=== PATIENT | female | born 1995 | race Caucasian/White ===

== ENCOUNTER 2018-06-04 19:59 | Emergency (ER) | payer MEDICAID ==
[2018-06-04 20:07] VITALS: BP 119/63
[2018-06-04 20:46] LABS: APPEARANCE,URINE CLEAR; BILIRUBIN,URINE NEGATIVE (NEGATIVE); COLOR,URINE COLORLESS; GLUCOSE, URINE NEGATIVE (NEGATIVE); KETONES,URINE NEGATIVE (NEGATIVE); LEUKOCYTE ESTERASE,URINE NEGATIVE (NEGATIVE); NITRITE,URINE NEGATIVE (NEGATIVE); PROTEIN,URINE NEGATIVE (NEGATIVE); URINE SPECIFIC GRAVITY 1.003; UROBILINOGEN,URINE NEGATIVE mg/dL (<2.0)
--- NOTE | 2018-06-04 20:48 | ER Document Report ---
ED General - General Chief Complaint: Abdominal Pain Stated Complaint: STOMACH PAIN, BACK PAIN 17 WEEKS PREG Time Seen by Provider: 06/04/18 20:46 Notes: Chief complaint: Right flank pain History of complain:( obtained from----patient) 23 years old female who is 17 weeks , while falling she broke a fall with the right hand since then having pain over the right flank. Did not hit the ground, no injury to the abdomen. No nausea vomiting, no diarrhea. No vagina related bleeding or discharge. No abdominal cramps. Onset: As above Duration: 2 days ago Severity: Mild to moderate Quality: Sharp Context: As above Exacerbating factor and relieving factors: Change of position REVIEW OF SYSTEMS: CONSTITUTIONAL : Denies fever, chills, or sweats. Denies recent illness. EENT: Denies eye, ear, throat, or mouth pain or symptoms. Denies nasal or sinus congestion or discharge. Denies throat, tongue, or mouth swelling or difficulty swallowing. CARDIOVASCULAR: Denies chest pain. Denies palpitations or racing or irregular heart beat. Denies ankle edema. RESPIRATORY: Denies cough, cold, or chest congestion. Denies shortness of breath, difficulty breathing, or wheezing. GASTROINTESTINAL: Denies distention. Denies nausea, vomiting, or diarrhea. Denies blood in vomitus, stools, or per rectum. Denies black, tarry stools. Denies constipation. GENITOURINARY: Denies difficulty urinating, painful urination, burning, frequency, blood in urine, or discharge. FEMALE GENITOURINARY: Denies vaginal bleeding, heavy or abnormal periods, irregular periods. Denies vaginal discharge or odor. MUSCULOSKELETAL: Denies back or neck pain or stiffness. Denies joint pain or swelling. SKIN: Denies rash, lesions or sores. HEMATOLOGIC : Denies easy bruising or bleeding. LYMPHATIC: Denies swollen, enlarged glands. NEUROLOGICAL: Denies confusion or altered mental status. Denies passing out or loss of consciousness. Denies dizziness or lightheadedness. Denies headache. Denies weakness or paralysis or loss of use of either side. Denies problems with gait or speech. Denies sensory loss, numbness, or tingling. Denies seizures. PSYCHIATRIC: Denies anxiety or stress. Denies depression, suicidal ideation, or homicidal ideation. ALL OTHER SYSTEMS REVIEWED AND NEGATIVE. PHYSICAL EXAMINATION: GENERAL: Well-appearing, well-nourished and in no acute distress. HEAD: Atraumatic, normocephalic. EYES: Pupils equal round and reactive to light, extraocular movements intact, conjunctiva are normal. ENT: Nares patent, oropharynx clear without exudates. Moist mucous membranes. NECK: Normal range of motion, supple without lymphadenopathy LUNGS: Breath sounds clear to auscultation bilaterally and equal. No wheezes rales or rhonchi. HEART: Regular rate and rhythm without murmurs ABDOMEN: Soft, nontender, nondistended abdomen. No guarding, no rebound. No masses appreciated. Right-abdominal muscle tenderness noted. Over the flank Examination of genitals-deferred Musculoskeletal: Normal range of motion, no pitting or edema. No cyanosis. NEUROLOGICAL: Cranial nerves grossly intact. Normal speech, normal gait. Normal sensory, motor exams PSYCH: Normal mood, normal affect. SKIN: Warm, Dry, normal turgor, no rashes or lesions noted. Dictation was performed using [employer] voice recognition software TRAVEL OUTSIDE OF THE [place] IN LAST 30 DAYS: No - HPI Notes: Dictated - Related Data Allergies/Adverse Reactions: oxycodone [From Percocet] Allergy (Verified 06/04/18 20:36) "really itchy and sick feeling" sulfamethoxazole [From Bactrim] Allergy (Verified 06/04/18 20:36) Hives trimethoprim [From Bactrim] Allergy (Verified 06/04/18 20:36) Hives Past Medical History - Social History Smoking Status: Never Smoker Chew tobacco use (# tins/day): No Frequency of alcohol use: None Drug Abuse: None Lives with: Family Family History: Reviewed & Not Pertinent Patient has suicidal ideation: No Patient has homicidal ideation: No - Past Medical History Cardiac Medical History: Denies: Hx Coronary Artery Disease, Hx Heart Attack, Hx Hypertension Pulmonary Medical History: Denies: Hx Asthma, Hx Bronchitis, Hx COPD, Hx Pneumonia Neurological Medical History: Denies: Hx Cerebrovascular Accident, Hx Seizures Renal/ Medical History: Denies: Hx Peritoneal Dialysis Musculoskeletal Medical History: Denies Hx Arthritis Past Surgical History: Reports: Hx Orthopedic Surgery - right knee surgery, Hx Tonsillectomy - Immunizations Hx Diphtheria, Pertussis, Tetanus Vaccination: Yes Review of Systems - Review of Systems Notes: Dictated Physical Exam - Vital signs Vitals: Temp Pulse Resp BP Pulse Ox 98.7 F 89 16 119/63 97 06/04/18 20:06 06/04/18 20:06 06/04/18 20:06 06/04/18 20:06 06/04/18 20:06 - Notes Notes: Dictated Course - Vital Signs Vital signs: Temp Pulse Resp BP Pulse Ox 98.7 F 89 16 119/63 97 06/04/18 20:06 06/04/18 20:06 06/04/18 20:06 06/04/18 20:06 06/04/18 20:06 - Laboratory Laboratory results interpreted by me: 06/04/18 20:30 Urine HCG, Qual POSITIVE H Discharge - Discharge Clinical Impression: Right flank pain Condition: Fair Disposition: HOME, SELF-CARE Instructions: Abdominal Pain ([facility]) Referrals: GERALDO CHIN DO [Primary Care Provider] - Follow up as needed
== END 2018-06-04 20:55 | disposition home or self-care (01) ==
LOC: ER 19:59
DX: O9A.212 Injury, poisoning and certain other consequences of external causes complicating pregnancy, second trimester (principal); O26.892 Other specified pregnancy related conditions, second trimester; R10.9 Unspecified abdominal pain; Z3A.17 17 weeks gestation of pregnancy; W19.XXXA Unspecified fall, initial encounter
CPT/HCPCS: 81001; 81025; 99284

== ENCOUNTER 2018-09-24 17:44 | Emergency (ER) | payer BC, MEDICAID ==
--- NOTE | 2018-09-24 19:53 | ER Document Report ---
HPI - HPI Patient complains to provider of: Flu symptoms Time Seen by Provider: 09/24/18 19:39 Onset: Yesterday Onset/Duration: Gradual Quality of pain: Achy Pain Level: 1 Context: Patient is 33 weeks . Patient complains of body aches that started yesterday and ingestion that started today. Patient does report multiple recent contacts who have been positive for influenza. Patient denies any problems during the thus far. Patient contacted her LITERACY SPECIALIST who advised her to come here to get influenza tested. Patient states that she did get the flu vaccine this year Associated Symptoms: Body/muscle aches, Rhinnorhea. denies: Fever, Nausea Exacerbated by: Denies Relieved by: Denies Similar symptoms previously: No Recently seen / treated by doctor: No - ROS ROS below otherwise negative: Yes Systems Reviewed and Negative: Yes All other systems reviewed and negative - CONSTITUTIONAL Constitutional: DENIES: Fever, Chills - EENT EENT: REPORTS: Nasal Drainage-Clear, Congestion - RESPIRATORY Respiratory: DENIES: Coughing - GASTROINTESTINAL Gastrointestinal: DENIES: Abdominal Pain, Patient vomiting - URINARY Urinary: DENIES: Dysuria, Urgency - REPRODUCTIVE Reproductive: REPORTS: : - MUSCULOSKELETAL Notes: Generalized body aches - DERM Skin Color: Normal Skin Problems: None Past Medical History - General Information source: Patient - Social History Smoking Status: Never Smoker Frequency of alcohol use: None Drug Abuse: None Occupation: [employer] Lives with: Family Family History: Reviewed & Not Pertinent Patient has suicidal ideation: No Patient has homicidal ideation: No Neurological Medical History: Reports: Hx Migraine Renal/ Medical History: Denies: Hx Peritoneal Dialysis Past Surgical History: Reports: Hx Cholecystectomy, Hx Orthopedic Surgery - right knee surgery, Hx Tonsillectomy - Immunizations Hx Diphtheria, Pertussis, Tetanus Vaccination: Yes Vertical Provider Document - CONSTITUTIONAL Agree With Documented VS: Yes Exam Limitations: No Limitations General Appearance: WD/WN, No Apparent Distress - INFECTION CONTROL TRAVEL OUTSIDE OF THE [place] IN LAST 30 DAYS: No - HEENT HEENT: Atraumatic, Normocephalic. negative: Pharyngeal Exudate, Pharyngeal Tenderness, Pharyngeal Erythema, Tympanic Membrane Red, Tympanic Membrane Bulging Notes: Clear rhinorrhea, swollen nasal mucosa - NECK Neck: Normal Inspection, Supple. negative: Lymphadenopathy-Left, Lymphadenopathy-Right - RESPIRATORY Respiratory: Breath Sounds Normal, No Respiratory Distress - CARDIOVASCULAR Cardiovascular: Regular Rate, Regular Rhythm, No Murmur - BACK Back: Normal Inspection - MUSCULOSKELETAL/EXTREMETIES Musculoskeletal/Extremeties: TRISTON ODELL - NEURO Level of Consciousness: Awake, Alert, Appropriate Motor/Sensory: No Motor Deficit - DERM Integumentary: Warm, Dry, No Rash Course - Re-evaluation Re-evalutation: 09/24/18 20:36 Patient with negative influenza test here today. Testing was performed because patient states her OB requested it. Patient advised that a negative test does not mean that she does not have influenza. Patient has had recent exposure to multiple contacts with influenza and patient is currently 33 weeks . We will plan to treat prophylactically with Tamiflu at this time. - Vital Signs Vital signs: Temp Pulse Resp BP Pulse Ox 98.2 F 97 18 111/78 100 09/24/18 18:19 09/24/18 18:19 09/24/18 18:19 09/24/18 18:19 09/24/18 18:19 - Laboratory Laboratory results interpreted by me: 09/24/18 20:37 Labs- Entire Visit 09/24/18 20:00 Influenza A (Rapid) NEGATIVE Influenza B (Rapid) NEGATIVE Discharge - Discharge Clinical Impression: Exposure to influenza Qualifiers: Weeks of gestation: 33 weeks Qualified Code(s): Z3A.33 - 33 weeks gestation of Condition: Stable Disposition: HOME, SELF-CARE Instructions: Acetaminophen, Influenza ([facility]) Additional Instructions: Return immediately for any new or worsening symptoms Followup with your primary care provider, call tomorrow to make a followup appointment Prescriptions: Oseltamivir Phosphate [Tamiflu 75 mg Capsule] 75 mg PO BID #10 capsule Forms: Return to Work Referrals: CLAIRE WOLF MD [Primary Care Provider] - Follow up tomorrow
[2018-09-24 20:33] LABS: A TYPE INFLUENZA AG NEGATIVE (NEGATIVE); B INFLUENZA AG NEGATIVE (NEGATIVE)
[2018-09-24 20:55] VITALS: BP 113/61
== END 2018-09-24 20:59 | disposition home or self-care (01) ==
LOC: ER 17:44
DX: O26.893 Other specified pregnancy related conditions, third trimester (principal); Z20.828 Contact with and (suspected) exposure to other viral communicable diseases; J34.89 Other specified disorders of nose and nasal sinuses; M79.10 Myalgia, unspecified site; Z3A.33 33 weeks gestation of pregnancy
CPT/HCPCS: 87804; 99283

== ENCOUNTER 2018-11-09 09:13 | Outpatient (CLI) | payer BC, MEDICAID ==
--- NOTE | 2018-11-09 12:21 | Non Stress Test Report ---
Non Stress Test Datetime Report Generated by CPN: 11/09/2018 12:21 INDICATION Indication for Study: Decreased Movement MONITORING Monitor Explained: Monitor Explained; Test Explained; Patient Verbalized Understanding Time on Monitor: 11/09/2018 09:31 Time off Monitor: 11/09/2018 10:26 NST Duration: 55 NST INTERVENTIONS NST Interventions: None Physician Notified NST: Dr Eladio BABY A: [id number] BABY A Contraction Frequency : none FHR Baseline : 135 Accelerations : 15X15 Decelerations : None Variability : Moderate 6-25bpm NST Review: Meets Criteria for Reactive NST NST Review and Verified By : Gladys Villa RN NST Results: Reactive NST REPORT Report Trigger: Send Report
[2018-11-09 12:24] LABS: APPEARANCE,URINE SLIGHTLY-CLOUDY; BILIRUBIN,URINE NEGATIVE (NEGATIVE); COLOR,URINE STRAW; GLUCOSE, URINE NEGATIVE (NEGATIVE); KETONES,URINE NEGATIVE (NEGATIVE); LEUKOCYTE ESTERASE,URINE NEGATIVE (NEGATIVE); NITRITE,URINE NEGATIVE (NEGATIVE); PROTEIN,URINE NEGATIVE (NEGATIVE); URINE SPECIFIC GRAVITY 1.004; UROBILINOGEN,URINE NEGATIVE mg/dL (<2.0)
[2018-11-09 12:45] LABS: URINE AMPHETAMINES SCREEN NEGATIVE; URINE BARBITURATES SCREEN NEGATIVE; URINE BENZODIAZEPINES SCREEN NEGATIVE; URINE COCAINE SCREEN NEGATIVE; URINE MARIJUANA (THC) SCREEN NEGATIVE; URINE METHADONE SCREEN NEGATIVE; URINE PHENCYCLIDINE SCREEN NEGATIVE
== END 2018-11-09 10:35 | disposition home or self-care (01) ==
LOC: LC 09:13
PROVIDERS: ATTEND Obstetrics & Gynecology
PROC: 4A1HXCZ Monitoring of Products of Conception, Cardiac Rate, External Approach (ICD-10-PCS; principal; 2018-11-09)
DX: O36.8130 Decreased fetal movements, third trimester, not applicable or unspecified (principal); Z3A.39 39 weeks gestation of pregnancy
CPT/HCPCS: 59025; 80307; 81005

== ENCOUNTER 2018-11-13 08:25 | Inpatient (IN) | payer BC, MEDICAID ==
[2018-11-19] MEDS ORDERED: OXYTOCIN 10 UNIT/ML VIAL ONE (19:33)
[2018-11-19] MEDS ORDERED: LIDOCAINE 1% INJ-PF (10 MG/ML) 30 ML SDV ONE (19:34)
[2018-11-19] MEDS ORDERED: OXYTOCIN/NORMAL SALINE 20 UNIT/1,000 ML RTUINJ ONE (19:34)
[2018-11-19] MEDS ORDERED: DINOPROSTONE 10 MG VAGINAL INSERT.SR ONE (19:34)
[2018-11-19] MEDS ORDERED: MISOPROSTOL 0.2 MG TABLET ONE (19:34)
[2018-11-19] MEDS ORDERED: OXYTOCIN/NORMAL SALINE 20 UNIT/1,000 ML RTUINJ IV PRN ×3 (19:40→20:01)
[2018-11-19] MEDS ORDERED: DINOPROSTONE 10 MG VAGINAL INSERT.SR PV PRN ×2 (19:40→19:59)
[2018-11-19] MEDS ORDERED: RINGERS SOLUTION,LACTATED 1,000 ML IV PRN ×2 (19:40→19:42)
[2018-11-19] MEDS ORDERED: RINGERS SOLUTION,LACTATED 300 ML IV ONE ×2 (19:40→19:59)
--- NOTE | 2018-11-19 19:57 | Admission Physical ---
Datetime Report Generated by CPN: 11/19/2018 19:57 CURRENT ADMISSION Chief Complaint: Scheduled Induction of Labor Indication for Induction: Post Dates Admit Impression : Postterm, Intrauterine Admit Plan: Admit to Unit; Initiate Labor Induction Protocol ALLERGIES Medication Allergies: Yes Medication Allergies: oxycodone/"really itchy a (11/09/2018); sulfamethoxazole/Hives (11/09/2018); trimethoprim/Hives (11/09/2018) OBSTETRICAL HISTORY EDC: 11/13/2018 00:00 : 1 Para: 0 Gestational Diabetes: No Rh Sensitization: No Incompetent Cervix: No SARA: No Infertility: No ART Treatment: No Uterine Anomaly: No IUGR: No Hx Previous C/S: No Macrosomia: No Hx Loss/Stillborn: No PIH: No Hx : No Placenta Previa/Abruption: No Depression/PP Depression: No PTL/PROM: No Post Hemorrhage: No Current Procedures: Ultrasound Obstetrical History Comments: G1 - current, MFM for LT/RT kidney cysts SEE RECORDS Alcohol: No Marijuana : No Cocaine: No Other Illicit Drugs: No Cigarettes: Never Smoker. 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 Surgery: No Heart Disease: No Hosp/Surgery: Yes Autoimmune Disorder: No Anesthetic Complications: No Kidney Disease: No Abnormal Pap Smear: No Neuro/Epilepsy: No Psychiatric Disorders: No Other Medical Diseases: No Hepatitis/Liver Disease: No Significant Family History: No Varicosities/Phlebitis: No Trauma/Violence : No Thyroid Dysfunction: No Medical History Comments: wisdom teeth, tonsillectomy, gallbladder removed, bilateral knee sx INFECTIOUS HISTORY Gonorrhea: No Genital Herpes: No Chlamydia: No Tuberculosis: No Syphilis: No Hepatitis: No HIV/AIDS Exposure: No Rash or Viral Illness: No HPV: No PHYSICAL EXAM General: Normal HEENT: Normal Neurologic: Normal Thyroid: Normal Heart: Normal Lungs: Normal Breast: Deferred Back: Normal Abdomen: Normal Genitourinary Exam: Normal Extremities: Normal DTRs: Normal Pelvic Type: Adequate Vital Signs: Reviewed VAGINAL EXAM Dilatation: 0 Effacement: 0 Station: -2 MEMBRANES Pooling: Negative Membranes: Intact FETUS A EGA: 40.6 Monitoring: External US FHR- Baseline: 120 Variability: Moderate 6-25bpm Decelerations: None FHR Category: Category I Admit Comment: Admit for induction PLANS FOR LABOR AND DELIVERY Labor and Delivery: None Pain Management: Epidural Feeding Preference: Breast Benefit of Breast Feed Discussed: Yes Circumcision: Yes INFORMED CONSENT Signature: with User ID: [email or web address]
[2018-11-19] MEDS ORDERED: MAG HYDROX/AL HYDROX/SIMETH SUSP 30 ML UDCUP PO PRN (20:01)
[2018-11-19] MEDS ORDERED: ACETAMINOPHEN 325 MG TABLET PO PRN (20:01)
[2018-11-19 20:31] LABS: APPEARANCE,URINE CLOUDY; BILIRUBIN,URINE NEGATIVE (NEGATIVE); COLOR,URINE YELLOW; GLUCOSE, URINE NEGATIVE (NEGATIVE); KETONES,URINE NEGATIVE (NEGATIVE); LEUKOCYTE ESTERASE,URINE SMALL (NEGATIVE); NITRITE,URINE NEGATIVE (NEGATIVE); PROTEIN,URINE 30 mg/dL (NEGATIVE); URINE SPECIFIC GRAVITY 1.031; UROBILINOGEN,URINE NEGATIVE mg/dL (<2.0)
[2018-11-19 20:33] LABS: ABSOLUTE EOSINOPHILS # (AUTO) 0.1 10^3/uL (0.0-0.6); ABSOLUTE LYMPHOCYTES (AUTO) 1.7 10^3/uL (0.5-4.7); ABSOLUTE MONOCYTES (AUTO) 1.1 10^3/uL (0.1-1.4); ABSOLUTE NEUT (AUTO) 6.1 10^3/uL (1.7-8.2); BASOPHILS % (AUTO) 0.4 % (0-2); EOSINOPHILS % (AUTO) 0.7 % (0-6); HEMATOCRIT 33.7 % (36.0-47.0); HEMOGLOBIN 11.7 g/dL (12.0-15.5); MEAN CORPUSCULAR HEMOGLOBIN 31.7 pg (27.0-33.4); MEAN CORPUSCULAR HGB CONC 34.6 g/dL (32.0-36.0); MEAN CORPUSCULAR VOLUME 92 fl (80-97); MONOCYTES % (AUTO) 11.8 % (3-13); PLATELET COUNT 192 10^3/uL (150-450); RED BLOOD COUNT 3.67 10^6/uL (3.72-5.28); RED CELL DISTRIBUTION WIDTH 13.7 % (11.5-14.0); SEGMENTED NEUTROPHILS % (AUTO) 68.1 % (42-78); TOTAL CELLS COUNTED % (AUTO) 100 %
[2018-11-19 20:58] LABS: URINE AMPHETAMINES SCREEN NEGATIVE; URINE BARBITURATES SCREEN NEGATIVE; URINE BENZODIAZEPINES SCREEN NEGATIVE; URINE COCAINE SCREEN NEGATIVE; URINE MARIJUANA (THC) SCREEN NEGATIVE; URINE METHADONE SCREEN NEGATIVE; URINE PHENCYCLIDINE SCREEN NEGATIVE
[2018-11-20] MEDS ORDERED: MISOPROSTOL 0.1 MG TABLET PO ONE (10:03)
[2018-11-20] MEDS ORDERED: MISOPROSTOL 0.1 MG TABLET PV ONE (10:04)
[2018-11-20] MEDS ORDERED: MISOPROSTOL 0.1 MG TABLET ONE (10:15)
[2018-11-20] MEDS ORDERED: ACETAMINOPHEN 325 MG TABLET ONE (12:00)
[2018-11-20] MEDS ORDERED: LOPERAMIDE HCL 2 MG CAPSULE ONE ×2 (14:11→14:16)
[2018-11-20] MEDS ORDERED: LOPERAMIDE HCL 2 MG CAPSULE PO ONE (14:13)
[2018-11-20] MEDS ORDERED: OXYTOCIN/NORMAL SALINE 0 UNIT/0 ML RTUINJ ONE (14:39)
[2018-11-20] MEDS ORDERED: OXYTOCIN/NORMAL SALINE 20 UNIT/1,000 ML RTUINJ IV PRN (14:45)
[2018-11-20] MEDS ORDERED: FENTANYL/BUPIVACAINE/NS/PF 300 MCG/150 ML RTUINJ EPI ONE (21:38)
[2018-11-20] MEDS ORDERED: PHENYLEPHRINE HCL INJ/PF 10 MG/1 ML SDV ONE (21:38)
[2018-11-20] MEDS ORDERED: BUPIVACAINE HCL 0.25 % INJ/PF (2.5 MG/1 ML) 30 ML VIAL ONE (21:38)
[2018-11-20] MEDS ORDERED: EPHEDRINE SULFATE INJ 50 MG/1 ML AMPULE ONE (21:38)
[2018-11-20] MEDS ORDERED: LIDOCAINE 1.5%/EPINEPHRINE INJ 5 ML AMP ONE (21:40)
[2018-11-20] MEDS: RINGERS SOLUTION,LACTATED 1,000 ML IV PRN (21:46)
[2018-11-20] MEDS ORDERED: FENTANYL CITRATE INJ/PF 100 MCG/2 ML AMPUL ONE (22:27)
[2018-11-21] MEDS: RINGERS SOLUTION,LACTATED 1,000 ML IV PRN (00:06)
[2018-11-21] MEDS ORDERED: METHYLERGONOVINE MALEATE INJ/PF 0.2 MG/1 ML AMPULE ONE (05:58)
[2018-11-21] MEDS ORDERED: BENZOCAINE/MENTHOL AEROSOL SPRAY 56 ML TOP PRN (06:04)
[2018-11-21] MEDS ORDERED: MAGNESIUM HYDROXIDE SUSP 30 ML UDCUP PO PRN (06:04)
[2018-11-21] MEDS ORDERED: DIPH/PERTUSS(ACELL)/TETANUS VAC/PF 0.5 ML SYR (>=10YO) IM PRN (06:04)
[2018-11-21] MEDS ORDERED: DIBUCAINE 1% OINTMENT 56 GM TP PRN (06:04)
[2018-11-21] MEDS ORDERED: PROMETHAZINE HCL 25 MG TABLET PO PRN (06:04)
[2018-11-21] MEDS ORDERED: PROMETHAZINE HCL 25 MG SUPP.RECT PR PRN (06:04)
[2018-11-21] MEDS ORDERED: PROMETHAZINE HCL INJ 25 MG/1 ML VIAL IV PRN (06:04)
[2018-11-21] MEDS ORDERED: OXYTOCIN/NORMAL SALINE 20,000 UNIT/1,000,000 ML RTUINJ IV PRN (06:04)
[2018-11-21] MEDS ORDERED: PSEUDOEPHEDRINE HCL 30 MG TABLET PO PRN (06:04)
[2018-11-21] MEDS ORDERED: MEASLES,MUMPS&RUBELLA VACC/PF 0.5 ML VIAL SUBCUT PRN (06:04)
[2018-11-21] MEDS ORDERED: GLYCERIN/WITCH HAZEL LEAF 1 EACH MED..PAD TP PRN (06:04)
[2018-11-21] MEDS ORDERED: DIPHENHYDRAMINE HCL 25 MG CAPSULE PO PRN (06:04)
[2018-11-21] MEDS ORDERED: ZOLPIDEM TARTRATE 5 MG TABLET PO PRN (06:04)
[2018-11-21] MEDS ORDERED: NA PHOS,M-B/NA PHOS,DI-BA (ADULT) 133 ML ENEMA PR PRN (06:04)
[2018-11-21] MEDS ORDERED: ACETAMINOPHEN 650 MG SUPP.RECT PR PRN (06:04)
[2018-11-21] MEDS ORDERED: IBUPROFEN 800 MG TABLET ONE (06:24)
[2018-11-21] MEDS ORDERED: MISOPROSTOL 0.2 MG TABLET ONE (06:24)
--- NOTE | 2018-11-21 07:21 | Warning Signs in Babies ---
VOD Warning Signs Datetime Report Generated by [facility]: 11/21/2018 07:21 VOD#[id number] -Warning Signs in Babies: Viewed with Parent(s)/Family (11/09/2018 12:25:Santo Roy RN)
--- NOTE | 2018-11-21 07:26 | Warning Signs in Babies ---
VOD Warning Signs Datetime Report Generated by [facility]: 11/21/2018 07:25 VOD#608 -Warning Signs in Babies: Viewed with Parent(s)/Family (11/21/2018 07:15:Santo Roy RN)
--- NOTE | 2018-11-21 07:54 | Delivery Summary ---
Del Sum A-C Datetime Report Generated by CPN: 11/21/2018 07:53 DELIVERY PERSONNEL DELIVERY PERSONNEL: [id number] Delivery Doctor:: Estrada Montenegro MD Labor and Delivery Nurse:: Yanira Reyes RN Labor and Delivery Nurse:: Reyna Whitmore RN Nursery Nurse:: Alyssia Doan RN Chyron Operator/ATOMIC WELDER: Jania Almodovar, ST Additional Personnel: : Soraya Youssef RN MATERNAL INFORMATION Delivery Anesthesia: Epidural Medications After Delivery: Pitocin Drip 20 Units/1000ml NSS; Methergine 0.2mg IM; Cytotec 800mcg Per Rectum/Vagina Maternal Complications: None LABOR SUMMARY EDC: 11/13/2018 00:00 No. Babies in Womb: 1 Attempted: No Labor Anesthesia: Epidural LABOR INFORMATION Reason for Induction: Post Dates Onset of Labor: 11/21/2018 00:06 Complete Dilatation: 11/21/2018 04:26 Cervical Ripening Agents: Cervidil; Cytotec @ Oxytocin: Induction Group B Beta Strep: negative Antibiotics # of Doses: 0 Steroids Given: None Reason Steroids Not Administered: Not Applicable MEMBRANES Membranes Rupture Method: Spontaneous Rupture of Membranes: 11/21/2018 00:06 Length of Rupture (hr): 5.70 Amniotic Fluid Color: Clear Amniotic Fluid Amount: Moderate Amniotic Fluid Odor: Normal STAGES OF LABOR Stage 1 hr: 4 Stage 1 min: 20 Stage 2 hr: 1 Stage 2 min: 22 Stage 3 hr: 0 Stage 3 min: 4 Total Time in Labor hr: 5 Total Time in Labor min: 46 VAGINAL DELIVERY Episiotomy: None Laceration #1: Perineal Laceration Extension #1: First Degree Laceration Repair: Yes Laceration Repair Note: 2-0 vicryl Sponge Count Correct: N/A Sharps Count Correct: Yes CSECTION DELIVERY Primary Indication: N/A Secondary Indication: N/A CSection Incidence: N/A Labor: N/A Elective: N/A CSection Incision: N/A BABY A INFORMATION Delivery Date/Time: 11/21/2018 05:48 Method of Delivery: Vaginal Born in Route : No : N/A Forceps: N/A Vacuum Extraction: Successful Shoulder Dystocia : No ASSISTED DELIVERY BABY A Indication for Assisted Delivery: bradycardia Catheter Prior to Procedure: No Station Vacuum/Forcep Apply: +1 Vacuum Number of Pulls: 6 Vacuum Number of PopOffs: 2 Vacuum Maximum Pressure Obtained: 550 Reduce Pressure btwn Ctx: Yes Vacuum Barrel Rifler Operator: KIWI Total Time Vacuum Applied: 11 minutes PRESENTATION/POSITION BABY A Presentation: Cephalic Cephalic Presentation: Vertex Breech Presentation: N/A PLACENTA INFORMATION BABY A Placenta Delivery Time : 11/21/2018 05:52 Placenta Method of Delivery: Spontaneous Placenta Status: Delivered SCORES BABY A Heart Rate 1 min: >100 bpm Resp Effort 1 min: Good Cry Reflex Irritability 1 min: Cough or Sneeze or Pulls Away Muscle Tone 1 min: Active Motion Color 1 min: Body [place], Extremities Blue Resuscitation Effort 1 min: Tactile Stimulation SCORE 1 MIN: 9 Heart Rate 5 min: >100 bpm Resp Effort 5 min: Good Cry Reflex Irritability 5 min: Cough or Sneeze or Pulls Away Muscle Tone 5 min: Active Motion Color 5 min: Completely [place] Resuscitation Effort 5 min: Tactile Stimulation SCORE 5 MIN: 10 INFANT INFORMATION BABY A Gestational Age at Delivery: 41.1 Gestational Status: Late Term- 41- 41.6 Weeks Infant Outcome : Liveborn Infant Condition : Stable Infant Sex: Male IDENTIFICATION BABY A Infant Verification Date/Time: 11/21/2018 06:09 ID Band Number: [id number] Mother's Name Verified: Yes Infant RN Verifying Infant: S. Lattibeaudeir, RNC _ M. Misyak, RN WEIGHT/LENGTH BABY A Infant Birthweight (gm): 3696 Infant Weight (lb): 8 Weight (oz): 2 Infant Length (in): 21.00 Length (cm): 53.34 CORD INFORMATION BABY A No. Cord Vessels: 3 Nuchal Cord : N/A Cord Blood Taken: Yes-For Storage (Mom's Blood type +) ASSESSMENT BABY A Infant Complications: None Physical Findings at Delivery: Caput Succedaneum Skin to Skin: Yes Transferred To: Remains with Mother BABY B INFORMATION : N/A SIGNATURES Signature: with User ID: [email or web address]
[2018-11-21] MEDS: ZOLPIDEM TARTRATE 5 MG TABLET PO SCH ×2 (09:17→09:18)
[2018-11-21] MEDS: FERROUS SULFATE 325 MG TABLET PO SCH ×2 (10:17→18:34)
[2018-11-21] MEDS: PRENATAL VITAMIN W DHA CAPSULE PO SCH (10:17)
[2018-11-21] MEDS: SENNOSIDES/DOCUSATE 8.6-50 MG 1 EACH TABLET PO SCH (10:17)
[2018-11-21] MEDS: DOCUSATE SODIUM 100 MG CAPSULE PO SCH ×2 (10:18→18:34)
[2018-11-21] MEDS: FAMOTIDINE 20 MG TABLET PO SCH ×2 (10:18→21:16)
[2018-11-21] MEDS: IBUPROFEN 800 MG TABLET PO SCH ×2 (14:31→21:16)
[2018-11-21] MEDS: ACETAMINOPHEN WITH CODEINE #3 TABLET PO PRN (21:24)
[2018-11-22] MEDS: IBUPROFEN 800 MG TABLET PO SCH ×3 (06:03→22:40)
[2018-11-22 06:44] LABS: HEMATOCRIT 29.2 % (36.0-47.0); HEMOGLOBIN 10.2 g/dL (12.0-15.5); MEAN CORPUSCULAR HGB CONC 34.9 g/dL (32.0-36.0); MEAN CORPUSCULAR VOLUME 92 fl (80-97); PLATELET COUNT 148 10^3/uL (150-450); RED BLOOD COUNT 3.19 10^6/uL (3.72-5.28); WHITE BLOOD COUNT 11.4 10^3/uL (4.0-10.5)
[2018-11-22] MEDS: ACETAMINOPHEN WITH CODEINE #3 TABLET PO PRN ×3 (07:44→18:38)
--- NOTE | 2018-11-22 08:22 | PDOC PROGRESS REPORT ---
Subjective-OB Progress Note for:: 11/22/18 Subjective: Doing well, no c/o Physical Exam (OB) Vital Signs: Temp Pulse Resp BP Pulse Ox 98.1 F 91 16 103/61 97 11/21/18 19:46 11/21/18 19:46 11/21/18 19:46 11/21/18 19:46 11/21/18 19:46 Intake & Output 11/21/18 11/22/18 11/23/18 06:59 06:59 06:59 Intake Total 1400 1999 Balance 1400 1999 - PIH/Pre-Eclampsia Headache: Absent Epigastric Pain: No Visual Changes: No - Lochia Lochia Amount: Small 10-25 ml Lochia Color: Rubra/Red - Abdomen Description: Tender, Soft Hernia Present: No Fundal Description: Firm, Midline Fundal Height: u/u - u/2 Objective-Diagnostic Laboratory: 11/22/18 06:31 11/22/18 06:31 WBC 11.4 H RBC 3.19 L Hgb 10.2 L Hct 29.2 L MCV 92 MCH 32.0 MCHC 34.9 RDW 14.0 Plt Count 148 L Assessment and Plan(PN) - Assessment and Plan (1) Vacuum extractor delivery, delivered Is this a current diagnosis for this admission?: Yes - Time Spent with Patient Time with patient: Less than 15 minutes Medications reviewed and adjusted accordingly: Yes - Disposition Anticipated Discharge: Home Within: within 24 hours
[2018-11-22] MEDS: PRENATAL VITAMIN W DHA CAPSULE PO SCH (11:29)
[2018-11-22] MEDS: SENNOSIDES/DOCUSATE 8.6-50 MG 1 EACH TABLET PO SCH (11:29)
[2018-11-22] MEDS: FERROUS SULFATE 325 MG TABLET PO SCH ×2 (11:29→18:38)
[2018-11-22] MEDS: DOCUSATE SODIUM 100 MG CAPSULE PO SCH ×2 (11:29→18:38)
[2018-11-22] MEDS: FAMOTIDINE 20 MG TABLET PO SCH ×2 (11:32→22:40)
[2018-11-22 20:24] VITALS: BP 115/64
[2018-11-23] MEDS: ACETAMINOPHEN WITH CODEINE #3 TABLET PO PRN ×2 (03:43→11:21)
[2018-11-23] MEDS: IBUPROFEN 800 MG TABLET PO SCH (06:20)
--- NOTE | 2018-11-23 08:48 | PDOC PROGRESS REPORT ---
Subjective-OB Progress Note for:: 11/23/18 Subjective: Doing well, no c/o, ready to go home Physical Exam (OB) Vital Signs: Temp Pulse Resp BP Pulse Ox 97.9 F 86 16 115/64 98 11/23/18 07:30 11/23/18 07:30 11/23/18 07:30 11/22/18 19:30 11/23/18 07:30 Intake & Output 11/22/18 11/23/18 11/24/18 06:59 06:59 06:59 Intake Total 1999 1500 Balance 1999 1500 - PIH/Pre-Eclampsia Headache: Absent Epigastric Pain: No Visual Changes: No - Lochia Lochia Amount: Small 10-25 ml Lochia Color: Rubra/Red - Abdomen Description: Tender, Soft Hernia Present: No Fundal Description: Firm, Midline Fundal Height: u/u - u/2 Objective-Diagnostic Laboratory: 11/22/18 06:31 Assessment and Plan(PN) - Assessment and Plan (1) Vacuum extractor delivery, delivered Is this a current diagnosis for this admission?: Yes - Time Spent with Patient Time with patient: Less than 15 minutes Medications reviewed and adjusted accordingly: Yes - Disposition Anticipated Discharge: Home Within: within 24 hours
--- NOTE | 2018-11-23 08:52 | PDOC DISCHARGE SUMMARY ---
Final Diagnosis Discharge Date: 11/23/18 - Final Diagnosis (1) Vacuum extractor delivery, delivered Is this a current diagnosis for this admission?: Yes Discharge Data - Discharge Medication Home Medications: [id number]/Iron/Folic/Dha [ Formula-Dha Softgel] 1 each PO DAILY 11/09/18 Gestational Age: 41.1 Reason(s) for Admission: Induction of Labor Procedures: NST, Ultrasound Intrapartum Procedure(s): Vacuum Extraction Complication(s): Laceration-Perineal Laceration-Degree: 1st - Diagnosis Test Laboratory: Temp Pulse Resp BP Pulse Ox 97.9 F 86 16 115/64 98 11/23/18 07:30 11/23/18 07:30 11/23/18 07:30 11/22/18 19:30 11/23/18 07:30 11/19/18 11/19/18 11/22/18 20:20 20:20 06:31 RBC 3.67 L 3.19 L Hgb 11.7 L 10.2 L Hct 33.7 L 29.2 L Urine Opiates Screen NEGATIVE - Discharge information/Instructions Discharge Activity: Activity As Tolerated Discharge Diet: As Tolerated, Regular Disposition: HOME, SELF-CARE Follow up with: [facility] in: 2, Weeks
[2018-11-23] MEDS: DOCUSATE SODIUM 100 MG CAPSULE PO SCH (11:18)
[2018-11-23] MEDS: FERROUS SULFATE 325 MG TABLET PO SCH (11:18)
[2018-11-23] MEDS: SENNOSIDES/DOCUSATE 8.6-50 MG 1 EACH TABLET PO SCH (11:18)
[2018-11-23] MEDS: PRENATAL VITAMIN W DHA CAPSULE PO SCH (11:18)
[2018-11-23] MEDS: FAMOTIDINE 20 MG TABLET PO SCH (11:23)
== END 2018-11-23 12:15 | disposition home or self-care (01) | DRG 807 ==
LOC: LR 11-19 19:30 → 2S 11-21 08:45
PROVIDERS: ADMIT Obstetrics & Gynecology; ATTEND Obstetrics & Gynecology
PROC: 3E033VJ Introduction of Other Hormone into Peripheral Vein, Percutaneous Approach (ICD-10-PCS; 2018-11-19)
PROC: 4A1HXCZ Monitoring of Products of Conception, Cardiac Rate, External Approach (ICD-10-PCS; 2018-11-19)
PROC: 10D07Z6 Extraction of Products of Conception, Vacuum, Via Natural or Artificial Opening (ICD-10-PCS; principal; 2018-11-21)
PROC: 0HQ9XZZ Repair Perineum Skin, External Approach (ICD-10-PCS; 2018-11-21)
DX: O48.0 Post-term pregnancy (principal); Z37.0 Single live birth; O70.0 First degree perineal laceration during delivery; O76 Abnormality in fetal heart rate and rhythm complicating labor and delivery; Z88.6 Allergy status to analgesic agent; Z88.3 Allergy status to other anti-infective agents; Z88.2 Allergy status to sulfonamides; Z3A.41 41 weeks gestation of pregnancy
CPT/HCPCS: 36415; 80307; 81005; 85025; 85027; 86592; 86850; 86900; 86901; 94760; J2210; J2370; J2590; J3010; J3490

== ENCOUNTER 2018-11-17 09:30 | Outpatient (CLI) | payer BC, MEDICAID ==
--- NOTE | 2018-11-17 10:40 | Non Stress Test Report ---
Non Stress Test Datetime Report Generated by CPN: 11/17/2018 10:39 DEMOGRAPHIC EGA NST: 40.4 INDICATION Indication for Study: Decreased Movement VITAL SIGNS Temperature - NST: 98.1 Pulse - NST: 100 NBPSYS NST: 126 NBPDIA NST: 75 MONITORING Monitor Explained: Monitor Explained; Test Explained Time on Monitor: 11/17/2018 09:42 Time off Monitor: 11/17/2018 10:09 NST Duration: 27 NST INTERVENTIONS NST Interventions: None Physician Notified NST: C. Jenkins, CNM BABY A: [id number] BABY A Movement : Present Contraction Frequency : x1 FHR Baseline : 140 Accelerations : 15X15 Decelerations : None Variability : Moderate 6-25bpm NST Review: Meets Criteria for Reactive NST NST Review and Verified By : Heber Hendricks RN NST Results: Reactive NST REPORT Report Trigger: Send Report
--- NOTE | 2018-11-19 19:18 | Non Stress Test Report ---
Non Stress Test Datetime Report Generated by CPN: 11/19/2018 19:17 DEMOGRAPHIC EGA NST: 40.4 INDICATION Indication for Study: Decreased Movement VITAL SIGNS Temperature - NST: 98.1 Pulse - NST: 100 NBPSYS NST: 126 NBPDIA NST: 75 MONITORING Monitor Explained: Monitor Explained; Test Explained Time on Monitor: 11/17/2018 09:42 Time off Monitor: 11/17/2018 10:09 NST Duration: 27 NST INTERVENTIONS NST Interventions: None Physician Notified NST: C. Jenkins, CNM BABY A: [id number] BABY A Movement : Present Contraction Frequency : x1 FHR Baseline : 140 Accelerations : 15X15 Decelerations : None Variability : Moderate 6-25bpm NST Review: Meets Criteria for Reactive NST NST Review and Verified By : Heber Hendricks RN NST Results: Reactive NST REPORT Report Trigger: Send Report
== END 2018-11-17 10:10 | disposition home or self-care (01) ==
LOC: LC 09:30
PROVIDERS: ATTEND Obstetrics & Gynecology
PROC: 4A1HXCZ Monitoring of Products of Conception, Cardiac Rate, External Approach (ICD-10-PCS; principal; 2018-11-17)
DX: O36.8130 Decreased fetal movements, third trimester, not applicable or unspecified (principal); Z3A.40 40 weeks gestation of pregnancy

== ENCOUNTER → 2019-05-26 | Outpatient (CLI) | payer BC ==
[2019-05-26 15:16] LABS: ABSOLUTE EOSINOPHILS # (AUTO) 0.1 10^3/uL (0.0-0.6); ABSOLUTE MONOCYTES (AUTO) 0.6 10^3/uL (0.1-1.4); ABSOLUTE NEUT (AUTO) 3.6 10^3/uL (1.7-8.2); BASOPHILS % (AUTO) 0.5 % (0-2); EOSINOPHILS % (AUTO) 1.4 % (0-6); HEMATOCRIT 41.1 % (36.0-47.0); HEMOGLOBIN 13.7 g/dL (12.0-15.5); LYMPHOCYTES % (AUTO) 31.6 % (13-45); MEAN CORPUSCULAR HEMOGLOBIN 28.8 pg (27.0-33.4); MEAN CORPUSCULAR HGB CONC 33.2 g/dL (32.0-36.0); MEAN CORPUSCULAR VOLUME 87 fl (80-97); MONOCYTES % (AUTO) 9.7 % (3-13); PLATELET COUNT 265 10^3/uL (150-450); RED BLOOD COUNT 4.75 10^6/uL (3.72-5.28); RED CELL DISTRIBUTION WIDTH 13.9 % (11.5-14.0); SEGMENTED NEUTROPHILS % (AUTO) 56.8 % (42-78); TOTAL CELLS COUNTED % (AUTO) 100 %; WHITE BLOOD COUNT 6.3 10^3/uL (4.0-10.5)
== END ==
LOC: OD 14:26
PROVIDERS: ATTEND Nurse Practitioner Family
DX: F53.0 Postpartum depression (principal); R53.83 Other fatigue
CPT/HCPCS: 36415; 84443; 85025